=== PATIENT | male | born 1965 | race Caucasian/White ===

== ENCOUNTER 2016-10-30 07:38 | Day surgery (SDC) | payer BC ==
[~2016-10-30] VITALS: Ht 175.3 cm; Wt 91.3 kg
[~2016-10-30 07:38] MED LIST: COZAAR25 MG PO; EXCEDRIN TENSION HEA PO; FELDENE10 MG PO; METHOCARBAMOL500 MG PO; SILDENAFIL CITR20 MG PO
--- NOTE | 2016-10-30 10:46 | Provider's Discharge Care Plan ---
Problem, Goal, Plan Problem List 1. S/P colonoscopy Goals: Screening Instructions: Follow up as needed, Take meds as directed, high fiber diet
--- NOTE | 2016-10-30 10:46 | Provider's Discharge Care Plan ---
Problem, Goal, Plan Problem List 1. S/P colonoscopy Goals: Screening Instructions: Follow up as needed, Take meds as directed, high fiber diet
--- NOTE | 2016-10-30 10:50 | Operative Report ---
Operative Report Date of Surgery: 10/30/16 Preoperate Diagnosis: screening colonoscopy Postoperative Diagnosis: rare sigmoid diverticulosis Surgeon: Jovani Mathew MD School Admissions Representative Surgeon: none Procedure Performed: Colonoscopy Anesthesia: tiva Indications: 51-year-old male with a symptomatic scheduled for his first screening colonoscopy at age 51. FINDINGS: Normal appearing cecum, ascending, transverse, descending colon. Patient was noted to have minor scattered diverticuli of the sigmoid. The rectal vault is grossly normal. Surgical Technique: Patient was brought to the operating room. Patient was placed in the left lateral decubitus position. Patient was administered TIVA by anesthesia. Once anesthesia had taken effect digital rectal examination was performed. No masses or stenosis was appreciated. This was then followed by the passage of a fiberoptic video flexible Olympus colonoscope. The scope was then passed without difficulty and the cecum was visualized. The cecum was identified by anatomical landmarks and anterior abdominal wall ballottement. On withdrawing the scope the aforementioned findings were noted. The scope was then retroflexed and a good view of the rectal wall obtained. The scope was then completely withdrawn. Patient tolerated procedure well. Patient was transferred to the recovery room in stable condition. There were no intraoperative or anesthetic complications.
[2016-10-30 12:41] VITALS: BP 116/89
== END 2016-10-30 12:10 | disposition home or self-care (01) ==
LOC: OR SRH 07:38 → SCU SRH 07:39 → OR SRH 09:30
PROVIDERS: Specialist
PROC: 0DJD8ZZ Inspection of Lower Intestinal Tract, Via Natural or Artificial Opening Endoscopic (ICD-10-PCS; principal; 2016-10-30 09:30)
DX: Z12.11 Encounter for screening for malignant neoplasm of colon (principal); K57.30 Diverticulosis of large intestine without perforation or abscess without bleeding; I10 Essential (primary) hypertension
CPT/HCPCS: 29229; 29240; 50004; 60001; 83526